=== PATIENT | male | born 1975 | race Caucasian/White ===

== ENCOUNTER → 2021-06-12 | Outpatient (CLI) | payer OTHER ==
--- NOTE | 2021-06-12 10:25 | KCIC ---
MR LUMBAR SPINE WO [id number] Date: 06/12/2021 9:15 AM Indication: LUMBAGO W/ SCIATICA RT SIDE. LBP for one yr. Worsening rt leg pain when sitting. Some RL E numbness. Comparison: None. Technique: Multi-planar multi-weighted magnetic resonance imaging of the lumbar spine was performed w ithout intravenous contrast using the standard lumbar spine protocol. FINDINGS: The lumbar spine is normally aligned. No acute fracture. The intervertebral discs are normal. Bone ma rrow signal intensity is normal. The conus terminates at a normal level. No abnormal signal is seen within the visualized distal spina l cord. No clumping of intrathecal nerve roots. No soft tissue abnormality in the visualized abdomen or pelvis. T12-L1: No disc bulge. No facet arthropathy. No significant spinal stenosis or neural foraminal narro wing. L1-L2: No disc bulge. No facet arthropathy. No significant spinal stenosis or neural foraminal narrow ing. L2-L3: Disc bulge. No facet arthropathy. Mild spinal canal stenosis. No significant neural foraminal narrowing. L3-L4: Disc bulge. Mild facet arthropathy. No significant spinal stenosis. Mild left neural foraminal narrowing. L4-L5: Disc bulge. Mild facet arthropathy. No significant spinal stenosis. Mild bilateral neural fora jodi narrowing. L5-S1: Disc bulge with right foraminal/far lateral protrusion which abuts the exiting L5 nerve root. Mild facet arthropathy. No significant spinal stenosis. Mild right neural foraminal narrowing. IMPRESSION: Mild lumbar spondylosis, detailed level by level above. Electronically signed by: Hugh Johnson MD (06/12/2021 10:23 AM) [id number]
== END ==
LOC: KCIC MRI 09:04
PROVIDERS: ATTEND Physician Assistant Medical
DX: M47.816 Spondylosis without myelopathy or radiculopathy, lumbar region (principal); M51.27 Other intervertebral disc displacement, lumbosacral region; M48.07 Spinal stenosis, lumbosacral region; M12.88 Other specific arthropathies, not elsewhere classified, other specified site
CPT/HCPCS: 72148